=== PATIENT | female | born 1975 | race African-American/Black ===

== ENCOUNTER 2021-11-25 03:14 | Emergency (ER) | payer OTHER ==
[~2021-11-25] VITALS: Ht 170.2 cm; Wt 90.7 kg
[2021-11-25] MEDS ORDERED: KETOROLAC TROMETH 30 MG/ML 1ML VIAL IM ONE (04:45)
[2021-11-25] MEDS ORDERED: methylPREDNISolone SOD SUCC 125 MG/2 ML VL IM ONE (04:45)
[2021-11-25] MEDS ORDERED: METH500T22 PO (04:56)
[2021-11-25] MEDS ORDERED: IBUP800T27 PO (04:56)
[2021-11-25 05:01] VITALS: BP 180/100
== END 2021-11-25 05:25 | disposition home or self-care (01) ==
LOC: ER 03:14
DX: S46.912A Strain of unspecified muscle, fascia and tendon at shoulder and upper arm level, left arm, initial encounter (principal); S86.912A Strain of unspecified muscle(s) and tendon(s) at lower leg level, left leg, initial encounter; Z88.0 Allergy status to penicillin; W00.0XXA Fall on same level due to ice and snow, initial encounter; Y93.89 Activity, other specified; Y92.89 Other specified places as the place of occurrence of the external cause; Y99.8 Other external cause status
CPT/HCPCS: 96372; 99284; J1885; J2930